=== PATIENT | female | born 1930 | race Caucasian/White ===

== ENCOUNTER → 2016-12-22 | Outpatient (CLI) | payer MEDICARE, MEDICAID ==
[~2016-12-22] MED LIST: AC325T PO; AC500T PO; ACET325T38 PO; ACID1TAB PO; ALBU17AE3; AMLO10TA2 PO; AMLO10TA4; AMLO10TA4 PO; ATR20T PO; CALC-2 PO; CALC1POW; CARI350T PO; CEFD300C3 PO; CHOL10003; CHOL10003 PO; COLE1TAB PO; CRS350T PO; CYAN10007 PO; DCS100C PO; DICL100G18 TOP; ENXP40I.4 SQ; ESOM20CA PO; FAMO-119 PO; FLUT16SP22 NS; GABA-486 PO; GBPN100C PO; GUAI600T43 PO; HCA25SU RC; HYDR-1231 PO; HYDR-3583 PO; HYDR-3812 PO; HYDR-707; HYDR-757 PO; HYPR15DR5 OU; IBUP200T48 PO; LACT1CAP45; LACT1CAP62 PO; LACT1TAB12 PO; LACTOBACILLUS PO; LEVO25TA5 PO; LEVO500T2 PO; LOPE2CAP; LOPE2CAP PO; LORA0.5T PO; LORA10CA PO; LRT10T PO; LVT.025T PO; MAG-5 PO; MELA1TAB16 PO; METH4TAB; METO-387 PO; METO50TA7; METO50TA7 PO; METR500T PO; MINE3.5O30 OS; MIRT15TA6 PO; MTP25TSR PO; MYLANTA; NALO25TA PO; NATURAL TEARS; NF-CIT200 PO; NF-ESOM40C PO; OMEP-10; OMEP20CA12 PO; OMEP20CA6; ONDN4T PO; OXYGEN; PEG250PW PO; POLY119P; POLY15DR14 OU; POLY17PO23 GT; POLY17PO23 PO; POTA20PA3 PO; POTA20TA15 PO; PRM25T PO; PROBIOTIC ADVANTAGE; PROM12.59 PO; PROM25SU10 RC; PROM25TA14 PO; PROP15DR OU; PROP1TAB77; RIVA15TA PO; ROPI0.5T2 PO; ROPI1TAB2 PO; ROPI1TAB40 PO; SENN-120 PO; SENN1TAB76 PO; SIME125C PO; SIMV40TA2; SIMV40TA2 PO; SUCR1ORA5 PO; SULF1TAB38; TERB15CR8; TRAM50TA2; TRL10C90; TROSP20C PO; VALS80TA; VALS80TA PO; VALS80TA30 PO; WARF7.5T; WARF7.5T PO; WRF5T; WRF5T PO; ZLP10T PO; ZLP5T; [UNRECOGNIZED DRUG - CODE]
== END ==
LOC: PREOP 05:40
PROVIDERS: ATTEND Surgery
DX: Z01.810 Encounter for preprocedural cardiovascular examination (principal); K92.1 Melena

== ENCOUNTER 2016-12-24 11:20 | Day surgery (SDC) | payer MEDICARE, MEDICAID ==
[~2016-12-24] VITALS: Ht 167.6 cm; Wt 68.1 kg
[~2016-12-24 11:20] MED LIST changes: -ESOM20CA PO; -LEVO500T2 PO; -METR500T PO
[2016-12-24 11:56] VITALS: BP 150/75
[2016-12-24] MEDS ORDERED: NS IV 500 ML 500 ML ONE (11:57)
[2016-12-24] MEDS ORDERED: NS IV 500 ML 500 ML IV PRN (12:00)
[2016-12-24] MEDS ORDERED: LIDOCAINE JELLY 2% (XYLOCAINE) 5 ML TUBE MM PRN (12:00)
[2016-12-24] MEDS ORDERED: ESOM20CA PO (12:08)
[2016-12-24] MEDS ORDERED: VALS80TA PO (12:08)
[2016-12-24] MEDS ORDERED: MIDAZOLAM 2 MG/2 ML (VERSED) VIAL ONE ×2 (12:33→12:59)
[2016-12-24] MEDS ORDERED: LIDOCAINE JELLY 2% (XYLOCAINE) 5 ML TUBE ONE (12:34)
[2016-12-24] MEDS ORDERED: fentaNYL INJECTION 100 MCG/2 ML AMP ONE (12:34)
[2016-12-24] MEDS: fentaNYL INJECTION 100 MCG/2 ML AMP IVP PRN ×4 (12:35→12:56)
[2016-12-24] MEDS: MIDAZOLAM 2 MG/2 ML (VERSED) VIAL IVP PRN ×4 (12:40→13:05)
--- NOTE | 2016-12-24 12:48 | Conscious Sedation/ASA ---
Conscious Sedation Pre-Proced Time Reviewed: 12:30 ASA Class: 3 Airway Mallampati Classification: ([place] appropriate class) I. II. III, IV Lungs Heart ASA score ASA 1: a normal healthy patient ASA 2: a patient with a mild systemic disease (mid diabetes, controlled hypertension, obesity ASA 3: a patient with a severe systemic disease that limits activity (angina , COPD, prior Myocardial infarction) ASA 4: a patient with an incapacitating disease that is a constant threat to life (CHF, renal failure) ASA 5: a moribund patient not expected to survive 24 hrs. (ruptured aneurysm) ASA 6: a declared brain patient whose organs are being harvested. For emergent operations, add the letter E after the classification Grade 2 Sedation Plan: Analgesia, Amnesia, Plan communicated to team members, Discussed options with patient/fam, Discussed risks with patient/fam Note The patient is an appropriate candidate to undergo the planned procedure, sedation, and anesthesia. The patient immediately re-assessed prior to indication. SAVAGE WOODS MD Dec 24, 2016 12:48 pm
--- NOTE | 2016-12-24 12:51 | Progress Note-Pre Operative ---
Pre-Operative Progress Note H&P Reviewed The H&P was reviewed, patient examined and no changes noted. Date Seen by Provider: Dec 24, 2016 Time Seen by Provider: 12:30 Date H&P Reviewed: Dec 24, 2016 Time H&P Reviewed: 12:30 Pre-Operative Diagnosis: change bowel habit. SAVAGE WOODS MD Dec 24, 2016 12:51 pm
[2016-12-24] MEDS ORDERED: ACETAMINOPHEN 325 MG TABLET/CAPLET (TYLENOL) PO PRN (13:00)
[2016-12-24] MEDS ORDERED: morphine INJ 10 MG/ML 1ML (SYR OR VIAL) IV PRN (13:00)
[2016-12-24] MEDS ORDERED: HYDROcodone/APAP 5 MG/325 MG (LORTAB) TAB PO PRN (13:00)
[2016-12-24] MEDS ORDERED: ONDANSETRON 4 MG/2 ML (SDV) Z0FRAN IV PRN (13:00)
[2016-12-24 13:45] VITALS: BP 128/64
--- NOTE | 2016-12-24 13:46 | Progress Note-Post Operative ---
Post-Operative Progess Note Surgeon (s)/Medical Geneticist (s) Surgeon SAVAGE WOODS MD Medical Geneticist: none Pre-Operative Diagnosis change bowel habit. Post-Operative Diagnosis chronic stage 1 ext and int hemorrhoids, moderate sigmoid diverticulosis, mild cecal and ascending colitis. Procedure & Operative Findings Date of Procedure 12/24/16 Procedure Performed/Findings Colonoscopy with bx. Anesthesia Type CS Estimated Blood Loss Estimated blood loss (mL): minimal Specimens/Packing Specimens Removed cecum SAVAGE WOODS MD Dec 24, 2016 1:46 pm
[2016-12-24] MEDS ORDERED: METR500T PO (13:48)
[2016-12-24] MEDS ORDERED: LEVO500T2 PO (13:48)
--- NOTE | 2016-12-24 13:49 | Discharge Inst-Surgical ---
D/C Lap Instructions-KIDO New, Converted, or Re-Newed RX: RX on Chart Follow Up PRN or will call Activity as tolerated High Fiber Diet 25g or more per day Avoid Alcohol, Caffeine, Spicy [place] and Acid foods. Drink 64 fluid oz or more of fluids per day. Symptoms to Report: Fever over 101 degree F, Nausea/Vomiting If any problems/questions: Contact your physician or go to Emergency Room SAVAGE WOODS MD Dec 24, 2016 1:49 pm
[2016-12-24 14:30] VITALS: BP 137/64
[2016-12-24 14:48] VITALS: BP 137/64
--- NOTE | 2016-12-26 00:33 | OPERATIVE REPORT ---
PROCEDURE PHYSICIAN: SAVAGE VINES DATE OF PROCEDURE: 12/24/2016 ATTENDING PRIMARY CARE PHYSICIAN: Dr. Steve. PREOPERATIVE DIAGNOSES: 1. Change in bowel habits. 2. Lower crampy abdominal pain. 3. Family history of colon cancer. POSTOPERATIVE DIAGNOSES: 1. Mild chronic stage I external and internal hemorrhoids. 2. Moderate sigmoid diverticulosis. 3. Mild colitis of the cecum and the ascending colon. PROCEDURE: Colonoscopy with biopsy. SURGEON: Dr. Vines. ANESTHESIA: Conscious sedation. ESTIMATED BLOOD LOSS: Minimal. FINDINGS: 1. Chronic stage I external and internal hemorrhoids, not actively edematous nor inflamed and no bleeding. 2. There was a moderate sigmoid diverticulosis with no signs of diverticulitis. 3. There was a mild mucosal inflammatory change of the cecum and the ascending colon. There were no formal ulcerations. There was no bleeding. DISPOSITION: The patient tolerated the procedure well. Ms. Linn Angeles is an 86-year-old female with several signs and symptoms. She has had heme positive stools and has also noted crampy pain in the lower abdominal quadrants. She also does have a family history of colon cancer. The [facility] staff stated that since she has had these changes in bowel habits, she has lost a mild amount weight as well. PROCEDURE: The patient was brought to the endoscopy suite, laid in left lateral decubitus position. After adequate IV pain and sedative medications and conscious sedation anesthesia, a digital rectal examination was performed. Chronic stage I external and internal hemorrhoids were identified, which were not actively edematous nor inflamed and no bleeding. Normal sphincter tone was felt and there were no palpable masses. The endoscope was then intubated into the anus and the rectum gently insufflated. The endoscope was then advanced through the valves of Grace of the rectum with no polyps or any or any neoplasms identified. The endoscope was then advanced through the sigmoid colon where moderate sigmoid diverticulosis was identified. There were no mucosal inflammatory changes to indicate any active diverticulitis. The endoscope was then advanced through the descending, transverse, and ascending colon. At the proximal ascending colon as well as the cecum, a mild colitis was identified. There were no formal ulcerations identified as well as no polyps or any neoplasms. A biopsy was taken at the cecum with forceps with visualization of good hemostasis. The endoscope was then slowly withdrawn while taking a second look and suctioning of residual air with no additional findings. The patient tolerated the procedure well. The colitis may be due to bacterial overgrowth; however, may indicate an ischemic colitis or an undiagnosed low level inflammatory bowel disease. We will await the biopsy results; however, treat her as if she did have bacterial overgrowth from her current medical comorbidities, as well as her previous history with Levaquin and Flagyl for the next 7 days. Job ID: [id number] Dictated Date: 12/24/2016 13:46:09 Coagulant Dipper Date: 12/26/2016 00:25:09 / mekhi CANTU
--- OUTSIDE RECORDS SUMMARY | 2016-12-28 07:00 | XMS REPORT | Continuity of Care Document ---
Author Author [facility] Organization [facility] Address Unknown Phone Unavailable Allergies Active Description Code Type Severity Reaction Onset Reported/Identified Relationship to Patient Clinical Status Yes trazodone [id number] Drug Allergy Unknown N/A 05/09/2009 Medications Problems Date Dx Coded Attending Type Code Diagnosis Diagnosed By 06/09/2009 Ot 733.00 08/24/2009 Ot 174.9 08/24/2009 Ot 272.4 08/24/2009 Ot 401.9 08/24/2009 Ot 438.20 08/24/2009 Ot 530.81 08/24/2009 Ot 562.10 08/24/2009 Ot 716.90 08/24/2009 Ot 722.10 08/24/2009 Ot 733.00 08/24/2009 Ot 790.5 08/24/2009 Ot V45.71 08/24/2009 Ot V58.61 08/24/2009 Ot V58.69 10/06/2009 Ot 787.91 11/27/2009 Ot 530.81 11/27/2009 Ot V10.3 11/27/2009 Ot V12.51 11/27/2009 Ot V12.54 11/27/2009 Ot V45.71 11/27/2009 Ot V45.77 11/27/2009 Ot V58.61 11/27/2009 Ot V58.69 11/27/2009 Ot V67.09 12/17/2010 Ot 787.91 12/17/2010 Ot 789.00 01/31/2011 Ot 789.00 03/03/2011 Ot 272.4 03/03/2011 Ot 401.9 03/03/2011 Ot 438.11 03/03/2011 Ot 530.81 03/03/2011 Ot 715.90 03/03/2011 Ot 891.0 03/03/2011 Ot 920 03/03/2011 Ot 923.00 03/03/2011 Ot E000.8 03/03/2011 Ot E849.7 03/03/2011 Ot E888.1 03/03/2011 Ot V06.1 03/03/2011 Ot V58.61 03/03/2011 Ot V58.69 06/04/2011 Ot 272.4 06/04/2011 Ot 285.1 06/04/2011 Ot 401.9 06/04/2011 Ot 438.11 06/04/2011 Ot 438.12 06/04/2011 Ot 530.81 06/04/2011 Ot 715.90 06/04/2011 Ot 733.00 06/04/2011 Ot 820.21 06/04/2011 Ot 820.22 06/04/2011 Ot 923.09 06/04/2011 Ot E000.8 06/04/2011 Ot E849.7 06/04/2011 Ot E884.2 06/04/2011 Ot V58.61 06/03/2012 Ot 787.91 06/03/2012 Ot 789.00 06/05/2012 Ot 354.0 06/05/2012 Ot 401.9 01/16/2014 CRIS ALICEA, ÓSCAR A Ot 438.11 01/16/2014 CRIS ALICEA, ÓSCAR A Ot 808.2 01/16/2014 CRIS ALICEA, ÓSCAR A Ot E849.7 01/16/2014 CRIS ALICEA, ÓSCAR A Ot E888.9 06/10/2014 WARD ALICEA, [facility] Ot 356.9 06/10/2014 WARD ALICEA, [facility] Ot 790.6 06/10/2014 WARD ALICEA, [facility] Ot V10.3 06/10/2014 WARD ALICEA, [facility] Ot V12.55 06/10/2014 WARD ALICEA, [facility] Ot V45.71 06/10/2014 WARD ALICEA, [facility] Ot V45.77 06/10/2014 WARD ALICEA, [facility] Ot V58.61 06/10/2014 WARD ALICEA, [facility] Ot V58.69 06/10/2014 WARD ALICEA, [facility] Ot V67.09 08/08/2014 Ot 611.72 08/08/2014 Ot 733.90 08/08/2014 Ot V76.12 08/08/2014 Ot 959.7 08/08/2014 Ot E849.0 08/08/2014 Ot E888.9 08/08/2014 Ot 174.9 08/08/2014 Ot 174.9 08/08/2014 Ot 709.9 08/08/2014 Ot 785.6 08/08/2014 Ot 791.9 08/08/2014 Ot V58.61 08/08/2014 Ot V72.81 08/08/2014 Ot V72.83 08/08/2014 Ot V74.8 08/08/2014 Ot V74.8 08/08/2014 Ot V74.8 08/08/2014 Ot 599.0 08/08/2014 Ot 789.00 08/08/2014 Ot V81.5 08/08/2014 Ot 787.91 08/08/2014 Ot 174.9 08/08/2014 Ot V10.3 08/08/2014 Ot V12.51 08/08/2014 Ot V12.54 08/08/2014 Ot V45.71 08/08/2014 Ot V45.77 08/08/2014 Ot V58.61 08/08/2014 Ot V58.69 08/08/2014 Ot V67.09 08/08/2014 Ot 719.45 08/08/2014 Ot 733.00 08/08/2014 Ot 729.5 08/08/2014 Ot 729.81 08/08/2014 Ot V10.3 08/08/2014 Ot V12.51 08/08/2014 Ot V12.54 08/08/2014 Ot V45.71 08/08/2014 Ot V45.77 08/08/2014 Ot V58.61 08/08/2014 Ot V58.69 08/08/2014 Ot V67.09 08/08/2014 Ot 008.45 08/08/2014 Ot 440.0 08/08/2014 Ot 562.10 08/08/2014 Ot 576.8 08/08/2014 Ot 593.9 08/08/2014 Ot 787.91 08/08/2014 Ot 789.00 08/08/2014 Ot 789.00 08/08/2014 Ot 787.91 08/08/2014 Ot 787.91 08/08/2014 Ot 438.10 08/08/2014 Ot 593.9 08/08/2014 Ot 724.02 08/08/2014 Ot 790.5 08/08/2014 Ot V10.3 08/08/2014 Ot V12.51 08/08/2014 Ot V45.71 08/08/2014 Ot V45.77 08/08/2014 Ot V58.61 08/08/2014 Ot V58.69 08/08/2014 Ot V67.09 08/08/2014 Ot 733.00 08/08/2014 Ot 785.9 08/08/2014 Ot 438.10 08/08/2014 Ot 593.9 08/08/2014 Ot 724.02 08/08/2014 Ot V10.3 08/08/2014 Ot V12.51 08/08/2014 Ot V45.71 08/08/2014 Ot V45.77 08/08/2014 Ot V58.61 08/08/2014 Ot V58.69 08/08/2014 Ot V67.09 08/08/2014 Ot 438.10 08/08/2014 Ot 593.9 08/08/2014 Ot 724.02 08/08/2014 Ot V10.3 08/08/2014 Ot V12.51 08/08/2014 Ot V45.71 08/08/2014 Ot V45.77 08/08/2014 Ot V58.61 08/08/2014 Ot V58.69 08/08/2014 Ot V67.09 08/08/2014 Ot 562.10 08/08/2014 Ot 789.00 08/08/2014 Ot V10.3 08/08/2014 Ot 438.10 08/08/2014 Ot 593.9 08/08/2014 Ot 724.02 08/08/2014 Ot V10.3 08/08/2014 Ot V12.51 08/08/2014 Ot V45.71 08/08/2014 Ot V45.77 08/08/2014 Ot V58.61 08/08/2014 Ot V58.69 08/08/2014 Ot V67.09 08/08/2014 Ot 354.0 08/08/2014 Ot V72.83 08/08/2014 Ot V74.8 08/08/2014 Ot 787.91 08/08/2014 Ot 789.00 08/08/2014 WARD ALICEA, COLIN Ot 438.10 08/08/2014 WARD ALICEA, COLIN Ot 782.0 08/08/2014 WARD ALICEA, [facility] Ot 790.6 08/08/2014 WARD ALICEA, [facility] Ot V10.3 08/08/2014 WARD ALICEA, [facility] Ot V12.55 08/08/2014 WARD ALICEA, [facility] Ot V45.71 08/08/2014 WARD ALICEA, [facility] Ot V45.77 08/08/2014 WARD ALICEA, [facility] Ot V58.61 08/08/2014 WARD ALICEA, [facility] Ot V58.69 08/08/2014 WARD ALICEA, [facility] Ot V67.09 08/08/2014 WARD ALICEA, [facility] Ot 782.0 08/08/2014 WARD ALICEA, [facility] Ot 790.6 08/08/2014 WARD ALICEA, [facility] Ot V10.3 08/08/2014 WARD ALICEA, [facility] Ot V45.71 08/08/2014 WARD ALICEA, [facility] Ot V45.77 08/08/2014 WARD ALICEA, [facility] Ot V58.69 08/08/2014 WARD ALICEA, [facility] Ot V67.09 08/08/2014 TREMAINE ALICEA, ALICIA A Ot 719.43 08/08/2014 WARD ALICEA, [facility] Ot 782.0 08/08/2014 WARD ALICEA, [facility] Ot 790.6 08/08/2014 WARD ALICEA, [facility] Ot V10.3 08/08/2014 WARD ALICEA, [facility] Ot V12.55 08/08/2014 WARD ALICEA, [facility] Ot V45.71 08/08/2014 WARD ALICEA, [facility] Ot V45.77 08/08/2014 WARD ALICEA, [facility] Ot V58.61 08/08/2014 WARD ALICEA, [facility] Ot V58.69 08/08/2014 WARD ALICEA, [facility] Ot V67.09 08/08/2014 WARD ALICEA, [facility] Ot 356.9 08/08/2014 WARD ALICEA, [facility] Ot 790.6 08/08/2014 WARD ALICEA, [facility] Ot V10.3 08/08/2014 WARD ALICEA, [facility] Ot V12.55 08/08/2014 WARD ALICEA, [facility] Ot V45.71 08/08/2014 WARD ALICEA, [facility] Ot V45.77 08/08/2014 WARD ALICEA, [facility] Ot V58.61 08/08/2014 WARD ALICEA, [facility] Ot V58.69 08/08/2014 WARD ALICEA, [facility] Ot V67.09 08/08/2014 WARD ALICEA, [facility] Ot 438.10 08/08/2014 WARD ALICEA, [facility] Ot 782.0 08/08/2014 WARD ALICEA, [facility] Ot 790.6 08/08/2014 WARD ALICEA, [facility] Ot V10.3 08/08/2014 WARD ALICEA, [facility] Ot V12.55 08/08/2014 WARD ALICEA, [facility] Ot V45.71 08/08/2014 WARD ALICEA, [facility] Ot V45.77 08/08/2014 WARD ALICEA, [facility] Ot V58.61 08/08/2014 WARD ALICEA, [facility] Ot V58.69 08/08/2014 WARD ALICEA, [facility] Ot V67.09 08/08/2014 WARD ALICEA, [facility] Ot 438.10 08/08/2014 WARD ALICEA, [facility] Ot 782.0 08/08/2014 WARD ALICEA, [facility] Ot 790.6 08/08/2014 WARD ALICEA, [facility] Ot V10.3 08/08/2014 WARD ALICEA, [facility] Ot V12.55 08/08/2014 WARD ALICEA, [facility] Ot V45.71 08/08/2014 WARD ALICEA, [facility] Ot V45.77 08/08/2014 WARD ALICEA, [facility] Ot V58.61 08/08/2014 WARD ALICEA, [facility] Ot V58.69 08/08/2014 WARD ALICEA, [facility] Ot V67.09 08/08/2014 WARD ALICEA, [facility] Ot 438.10 08/08/2014 WARD ALICEA, [facility] Ot 782.0 08/08/2014 WARD ALICEA, [facility] Ot 790.6 08/08/2014 WARD ALICEA, [facility] Ot V10.3 08/08/2014 WARD ALICEA, [facility] Ot V12.55 08/08/2014 WARD ALICEA, [facility] Ot V45.71 08/08/2014 WARD ALICEA, [facility] Ot V45.77 08/08/2014 WARD ALICEA, [facility] Ot V58.61 08/08/2014 WARD ALICEA, [facility] Ot V58.69 08/08/2014 WARD ALICEA, [facility] Ot V67.09 08/08/2014 WARD ALICEA, [facility] Ot 438.10 08/08/2014 WARD ALICEA, [facility] Ot 782.0 08/08/2014 WARD ALICEA, [facility] Ot 790.6 08/08/2014 WARD ALICEA, [facility] Ot V10.3 08/08/2014 WARD ALICEA, [facility] Ot V12.55 08/08/2014 WARD ALICEA, [facility] Ot V45.71 08/08/2014 WARD ALICEA, [facility] Ot V45.77 08/08/2014 WARD ALICEA, [facility] Ot V58.61 08/08/2014 WARD ALICEA, [facility] Ot V58.69 08/08/2014 WARD ALICEA, [facility] Ot V67.09 09/17/2014 WARD ALICEA, [facility] Ot 782.0 09/17/2014 WARD ALICEA, [facility] Ot 790.6 09/17/2014 WARD ALICEA, [facility] Ot V10.3 09/17/2014 WARD ALICEA, [facility] Ot V12.55 09/17/2014 WARD ALICEA, ILMA[facility] Ot V45.71 09/17/2014 WARD ALICEA, [facility] Ot V45.77 09/17/2014 WARD ALICEA, [facility] Ot V58.61 09/17/2014 WARD ALICEA, [facility] Ot V58.69 09/17/2014 WARD ALICEA, [facility] Ot V67.09 09/19/2014 Ot 789.00 10/04/2014 Ot 789.00 12/16/2014 Ot V74.8 12/16/2014 Ot V74.8 12/16/2014 Ot 599.0 12/16/2014 Ot 789.00 12/16/2014 Ot V81.5 12/16/2014 Ot 787.91 12/16/2014 Ot 174.9 12/16/2014 Ot V10.3 12/16/2014 Ot V12.51 12/16/2014 Ot V12.54 12/16/2014 Ot V45.71 12/16/2014 Ot V45.77 12/16/2014 Ot V58.61 12/16/2014 Ot V58.69 12/16/2014 Ot V67.09 12/16/2014 Ot 719.45 12/16/2014 Ot 733.00 12/16/2014 Ot 729.5 12/16/2014 Ot 729.81 12/16/2014 Ot V10.3 12/16/2014 Ot V12.51 12/16/2014 Ot V12.54 12/16/2014 Ot V45.71 12/16/2014 Ot V45.77 12/16/2014 Ot V58.61 12/16/2014 Ot V58.69 12/16/2014 Ot V67.09 12/16/2014 Ot 008.45 12/16/2014 Ot 440.0 12/16/2014 Ot 562.10 12/16/2014 Ot 576.8 12/16/2014 Ot 593.9 12/16/2014 Ot 787.91 12/16/2014 Ot 789.00 12/16/2014 Ot 789.00 12/16/2014 Ot 787.91 12/16/2014 Ot 787.91 12/16/2014 Ot 438.10 12/16/2014 Ot 593.9 12/16/2014 Ot 724.02 12/16/2014 Ot 790.5 12/16/2014 Ot V10.3 12/16/2014 Ot V12.51 12/16/2014 Ot V45.71 12/16/2014 Ot V45.77 12/16/2014 Ot V58.61 12/16/2014 Ot V58.69 12/16/2014 Ot V67.09 12/16/2014 Ot 733.00 12/16/2014 Ot 785.9 12/16/2014 Ot 438.10 12/16/2014 Ot 593.9 12/16/2014 Ot 724.02 12/16/2014 Ot V10.3 12/16/2014 Ot V12.51 12/16/2014 Ot V45.71 12/16/2014 Ot V45.77 12/16/2014 Ot V58.61 12/16/2014 Ot V58.69 12/16/2014 Ot V67.09 12/16/2014 Ot 438.10 12/16/2014 Ot 593.9 12/16/2014 Ot 724.02 12/16/2014 Ot V10.3 12/16/2014 Ot V12.51 12/16/2014 Ot V45.71 12/16/2014 Ot V45.77 12/16/2014 Ot V58.61 12/16/2014 Ot V58.69 12/16/2014 Ot V67.09 12/16/2014 Ot 562.10 12/16/2014 Ot 789.00 12/16/2014 Ot V10.3 12/16/2014 Ot 438.10 12/16/2014 Ot 593.9 12/16/2014 Ot 724.02 12/16/2014 Ot V10.3 12/16/2014 Ot V12.51 12/16/2014 Ot V45.71 12/16/2014 Ot V45.77 12/16/2014 Ot V58.61 12/16/2014 Ot V58.69 12/16/2014 Ot V67.09 12/16/2014 Ot 354.0 12/16/2014 Ot V72.83 12/16/2014 Ot V74.8 12/16/2014 Ot 787.91 12/16/2014 Ot 789.00 12/16/2014 WARD ALICEA, JANINELEDY Ot 438.10 12/16/2014 WARD ALICEA, LIMALEDY Ot 782.0 12/16/2014 WARD ALICEA, LIMALEDY Ot 790.6 12/16/2014 WARD ALICEA, LIMALEDY Ot V10.3 12/16/2014 WARD ALICEA, LIMALEDY Ot V12.55 12/16/2014 WARD ALICEA, LIMALEDY Ot V45.71 12/16/2014 WARD ALICEA, LIMALEDY Ot V45.77 12/16/2014 WARD ALICEA, [facility] Ot V58.61 12/16/2014 WARD ALICEA, [facility] Ot V58.69 12/16/2014 WARD ALICEA, [facility] Ot V67.09 12/16/2014 WARD ALICEA, LIMALEDY Ot 782.0 12/16/2014 WARD ALICEA, [facility] Ot 790.6 12/16/2014 WARD ALICEA, [facility] Ot V10.3 12/16/2014 WARD ALICEA, [facility] Ot V45.71 12/16/2014 WARD ALICEA, [facility] Ot V45.77 12/16/2014 WARD ALICEA, [facility] Ot V58.69 12/16/2014 WARD ALICEA, [facility] Ot V67.09 12/16/2014 TREMAINE ALICEA, ALICIA A Ot 719.43 12/16/2014 WARD ALICEA, [facility] Ot 782.0 12/16/2014 WARD ALICEA, [facility] Ot 790.6 12/16/2014 WARD ALICEA, [facility] Ot V10.3 12/16/2014 WARD ALICEA, [facility] Ot V12.55 12/16/2014 WARD ALICEA, [facility] Ot V45.71 12/16/2014 WARD ALICEA, [facility] Ot V45.77 12/16/2014 WARD ALICEA, [facility] Ot V58.61 12/16/2014 WARD ALICEA, [facility] Ot V58.69 12/16/2014 WARD ALICEA, [facility] Ot V67.09 12/16/2014 WARD ALICEA, [facility] Ot 356.9 12/16/2014 WARD ALICEA, [facility] Ot 790.6 12/16/2014 WARD ALICEA, [facility] Ot V10.3 12/16/2014 WARD ALICEA, [facility] Ot V12.55 12/16/2014 WARD ALICEA, [facility] Ot V45.71 12/16/2014 WARD ALICEA, [facility] Ot V45.77 12/16/2014 WARD ALICEA, [facility] Ot V58.61 12/16/2014 WARD ALICEA, [facility] Ot V58.69 12/16/2014 WARD ALICEA, [facility] Ot V67.09 12/16/2014 Ot 789.00 01/08/2015 WARD ALICEA, [facility] Ot 356.9 01/08/2015 WARD ALICEA, [facility] Ot 427.31 01/08/2015 WARD ALICEA, [facility] Ot 438.10 01/08/2015 WARD ALICEA, [facility] Ot 724.02 01/08/2015 WARD ALICEA, [facility] Ot 790.6 01/08/2015 WARD ALICEA, [facility] Ot V10.3 01/08/2015 WARD ALICEA, CL[facility] Ot V12.55 01/08/2015 WARD ALICEA, LIMALEDY Ot V45.71 01/08/2015 WARD ALICEA, LIMALEDY Ot V58.61 01/08/2015 WARD ALICEA, LIMALEDY Ot V58.69 01/08/2015 WARD ALICEA, LIMAL[facility]Y Ot V67.09 01/08/2015 [facility] V88.01 01/08/2015 TREMAINE ALICEA, ALICIA Leoncio Ot 599.0 01/31/2015 WARD ALICEA, LIMALEDY Ot 356.9 01/31/2015 WARD ALICEA, LIMAL[facility]Y Ot 427.31 01/31/2015 WARD ALICEA, LIMAL[facility]Y Ot 438.10 01/31/2015 WARD ALICEA, LIMALEDY Ot 724.02 01/31/2015 WARD ALICEA, CLARENCELEDY Ot 790.6 01/31/2015 WARD ALICEA, LIMALEDY Ot V10.3 01/31/2015 WARD ALICEA, LIMALEDY Ot V12.55 01/31/2015 WARD ALICEA, LIMALEDY Ot V45.71 01/31/2015 WARD ALICEA, LIMALEDY Ot V58.61 01/31/2015 WARD ALICEA, LIMALEDY Ot V58.69 01/31/2015 WARD ALICEA, LIMALEDY Ot V67.09 01/31/2015 WARD ALICEA, LIMALEDY Ot V88.01 09/24/2015 Ot V10.3 09/24/2015 Ot V12.51 09/24/2015 Ot V12.54 09/24/2015 Ot V45.71 09/24/2015 Ot V45.77 09/24/2015 Ot V58.61 09/24/2015 Ot V58.69 09/24/2015 Ot V67.09 09/24/2015 Ot 008.45 09/24/2015 Ot 440.0 09/24/2015 Ot 562.10 09/24/2015 Ot 576.8 09/24/2015 Ot 593.9 09/24/2015 Ot 787.91 09/24/2015 Ot 789.00 09/24/2015 Ot 789.00 09/24/2015 Ot 787.91 09/24/2015 Ot 787.91 09/24/2015 Ot 438.10 09/24/2015 Ot 593.9 09/24/2015 Ot 724.02 09/24/2015 Ot 790.5 09/24/2015 Ot V10.3 09/24/2015 Ot V12.51 09/24/2015 Ot V45.71 09/24/2015 Ot V45.77 09/24/2015 Ot V58.61 09/24/2015 Ot V58.69 09/24/2015 Ot V67.09 09/24/2015 Ot 733.00 09/24/2015 Ot 785.9 09/24/2015 Ot 438.10 09/24/2015 Ot 593.9 09/24/2015 Ot 724.02 09/24/2015 Ot V10.3 09/24/2015 Ot V12.51 09/24/2015 Ot V45.71 09/24/2015 Ot V45.77 09/24/2015 Ot V58.61 09/24/2015 Ot V58.69 09/24/2015 Ot V67.09 09/24/2015 Ot 438.10 09/24/2015 Ot 593.9 09/24/2015 Ot 724.02 09/24/2015 Ot V10.3 09/24/2015 Ot V12.51 09/24/2015 Ot V45.71 09/24/2015 Ot V45.77 09/24/2015 Ot V58.61 09/24/2015 Ot V58.69 09/24/2015 Ot V67.09 09/24/2015 Ot 562.10 09/24/2015 Ot 789.00 09/24/2015 Ot V10.3 09/24/2015 Ot 438.10 09/24/2015 Ot 593.9 09/24/2015 Ot 724.02 09/24/2015 Ot V10.3 09/24/2015 Ot V12.51 09/24/2015 Ot V45.71 09/24/2015 Ot V45.77 09/24/2015 Ot V58.61 09/24/2015 Ot V58.69 09/24/2015 Ot V67.09 09/24/2015 Ot 354.0 09/24/2015 Ot V72.83 09/24/2015 Ot V74.8 09/24/2015 Ot 787.91 09/24/2015 Ot 789.00 09/24/2015 WARD ALICEA, [facility] Ot 438.10 09/24/2015 WARD ALICEA, [facility] Ot 782.0 09/24/2015 WARD ALICEA, [facility] Ot 790.6 09/24/2015 WARD ALICEA, [facility] Ot V10.3 09/24/2015 WARD ALICEA, [facility] Ot V12.55 09/24/2015 WARD ALICEA, [facility] Ot V45.71 09/24/2015 WARD ALICEA, [facility] Ot V45.77 09/24/2015 WARD ALICEA, [facility] Ot V58.61 09/24/2015 WARD ALICEA, [facility] Ot V58.69 09/24/2015 WARD ALICEA, [facility] Ot V67.09 09/24/2015 WARD ALICEA, [facility] Ot 782.0 09/24/2015 WARD ALICEA, [facility] Ot 790.6 09/24/2015 WARD ALICEA, [facility] Ot V10.3 09/24/2015 WARD ALICEA, [facility] Ot V45.71 09/24/2015 WARD ALICEA, [facility] Ot V45.77 09/24/2015 WARD ALICEA, [facility] Ot V58.69 09/24/2015 WARD ALICEA, [facility] Ot V67.09 09/24/2015 TREMAINE ALICEA, ALICIA A Ot 719.43 09/24/2015 WARD ALICEA, [facility] Ot 782.0 09/24/2015 WARD ALICEA, CL[facility] Ot 790.6 09/24/2015 WARD ALICEA, [facility] Ot V10.3 09/24/2015 WARD ALICEA, [facility] Ot V12.55 09/24/2015 WARD ALICEA, [facility] Ot V45.71 09/24/2015 WARD ALICEA, [facility] Ot V45.77 09/24/2015 WARD ALICEA, CL[facility] Ot V58.61 09/24/2015 WARD ALICEA, [facility] Ot V58.69 09/24/2015 WARD ALICEA, CL[facility] Ot V67.09 09/24/2015 WARD ALICEA, CL[facility] Ot 356.9 09/24/2015 WARD ALICEA, [facility] Ot 790.6 09/24/2015 WARD ALICEA, [facility] Ot V10.3 09/24/2015 WARD ALICEA, CL[facility] Ot V12.55 09/24/2015 WARD ALICEA, CL[facility] Ot V45.71 09/24/2015 WARD ALICEA, CLARENCE[facility]LEDY Ot V45.77 09/24/2015 WARD ALICEA, CLARENCE[facility]Y Ot V58.61 09/24/2015 WARD ALICEA, [facility] Ot V58.69 09/24/2015 WARD ALICEA, CLARENCE[facility]LEDY Ot V67.09 09/24/2015 Ot 789.00 09/24/2015 WARD ALICEA, CL[facility] Ot 356.9 09/24/2015 WARD ALICEA, CLARENCE[facility]LEDY Ot 427.31 09/24/2015 WARD ALICEA, CLARENCE[facility]Y Ot 438.10 09/24/2015 WARD ALICEA, CLARENCE[facility]Y Ot 724.02 09/24/2015 WARD ALICEA, CL[facility] Ot 790.6 09/24/2015 WARD ALICEA, CL[facility] Ot V10.3 09/24/2015 WARD ALICEA, [facility] Ot V12.55 09/24/2015 WARD ALICEA, [facility] Ot V45.71 09/24/2015 WARD ALICEA, [facility] Ot V58.61 09/24/2015 WARD ALICEA, CL[facility] Ot V58.69 09/24/2015 WARD ALICEA, CL[facility]Y Ot V67.09 09/24/2015 WARD ALICEA, [facility] Ot V88.01 09/24/2015 TREMAINE ALICEA, ALICIA Fang Ot 599.0 09/25/2015 ALICIA PENALOZA MD Ot E03.9 HYPOTHYROIDISM, UNSPECIFIED 09/25/2015 ALICIA PENALOZA MD Ot G45.9 TRANSIENT CEREBRAL ISCHEMIC ATTACK, UNSP 09/25/2015 TREMAINE ALICEA, ALICIA Fang Ot I10 ESSENTIAL (PRIMARY) HYPERTENSION 09/25/2015 ALICIA PENALOZA MD Ot I50.9 HEART FAILURE, UNSPECIFIED 09/25/2015 ALICIA PENALOZA MD Ot 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 09/25/2015 ALICIA PENALOZA MD Ot J18.9 PNEUMONIA, UNSPECIFIED ORGANISM 09/25/2015 ALICIA PENALOZA MD Ot K21.9 GASTRO-ESOPHAGEAL REFLUX DISEASE WITHOUT 09/25/2015 TREMAINE ALICEA, ALICIA Fang Ot R07.9 CHEST PAIN, UNSPECIFIED 09/25/2015 ALICIA PENALOZA MD Ot R53.1 WEAKNESS 09/25/2015 ALICIA PENALOZA MD Ot Z87.891 PERSONAL HISTORY OF NICOTINE DEPENDENCE 12/21/2015 BHARAT ALICEA, GET Rogel Ot M25.552 PAIN IN LEFT HIP 12/25/2015 GET NICHOLSON MD Ot M25.552 PAIN IN LEFT HIP 12/25/2015 BHARAT ALICEA, GET Rogel Ot M25.552 PAIN IN LEFT HIP 04/25/2016 RAÚL WARD Ot I10 ESSENTIAL (PRIMARY) HYPERTENSION 04/25/2016 RAÚL WARD Ot 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 04/25/2016 RAÚL WARD Ot K21.9 GASTRO-ESOPHAGEAL REFLUX DISEASE WITHOUT 04/25/2016 RAÚL WARD Ot R10.13 EPIGASTRIC PAIN 04/25/2016 RAÚL WARD Ot R91.8 OTHER NONSPECIFIC ABNORMAL FINDING OF MARVIN 04/25/2016 RAÚL WARD Ot Z79.899 OTHER HOME SERVICE ADVISOR (CURRENT) DRUG THERAPY 04/27/2016 RAÚL WARD Ot I10 ESSENTIAL (PRIMARY) HYPERTENSION 04/27/2016 RAÚL WARD Ot 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 04/27/2016 RAÚL WARD Ot K21.9 GASTRO-ESOPHAGEAL REFLUX DISEASE WITHOUT 04/27/2016 RAÚL WARD Ot R10.13 EPIGASTRIC PAIN 04/27/2016 RAÚL WARD Ot R91.8 OTHER NONSPECIFIC ABNORMAL FINDING OF MARVIN 04/27/2016 RAÚL WARD Ot Z79.899 OTHER HOME SERVICE ADVISOR (CURRENT) DRUG THERAPY 04/27/2016 RAÚL WARD Ot I10 ESSENTIAL (PRIMARY) HYPERTENSION 04/27/2016 RAÚL WARD Ot 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 04/27/2016 RAÚL WARD Ot K21.9 GASTRO-ESOPHAGEAL REFLUX DISEASE WITHOUT 04/27/2016 RAÚL WARD Ot R10.13 EPIGASTRIC PAIN 04/27/2016 RAÚL WARD Ot R91.8 OTHER NONSPECIFIC ABNORMAL FINDING OF MARVIN 04/27/2016 RAÚL WARD Ot Z79.899 OTHER HOME SERVICE ADVISOR (CURRENT) DRUG THERAPY 12/24/2016 SAVAGE WOODS MD Ot K92.1 MELENA 12/24/2016 SAVAGE WOODS MD Ot Z01.810 ENCOUNTER FOR PREPROCEDURAL CARDIOVASCUL 12/24/2016 SAVAGE WOODS MD Ot K92.1 MELENA 12/24/2016 SAVAGE WOODS MD Ot Z01.810 ENCOUNTER FOR PREPROCEDURAL CARDIOVASCUL 12/24/2016 SAVAGE WOODS MD Ot K92.1 MELENA 12/24/2016 SAVAGE WOODS MD Ot Z01.810 ENCOUNTER FOR PREPROCEDURAL CARDIOVASCUL 12/24/2016 SAVAGE WOODS MD Ot K92.1 MELENA 12/24/2016 SAVAGE WOODS MD Ot Z01.810 ENCOUNTER FOR PREPROCEDURAL CARDIOVASCUL 12/24/2016 SAVAGE WOODS MD Ot K92.1 MELENA 12/24/2016 SAVAGE WOODS MD Ot Z01.810 ENCOUNTER FOR PREPROCEDURAL CARDIOVASCUL Procedures Results Test Result Range Complete blood count (CBC) with automated white blood cell (WBC) differential - 04/25/16 11:47 Blood leukocytes automated count (number/volume) 8.1 10*3/ uL 4.3-11.0 Blood erythrocytes automated count (number/volume) 5.59 10*6 /uL 4.35-5.85 Venous blood hemoglobin measurement (mass/volume) 16.4 g/dL 11.5-16.0 Blood hematocrit (volume fraction) 50 % 35-52 Automated erythrocyte mean corpuscular volume 89 [foz_us] 80-99 Automated erythrocyte mean corpuscular hemoglobin (mass per erythrocyte) 29 pg 25-34 Automated erythrocyte mean corpuscular hemoglobin concentration measurement ( mass/volume) 33 g/dL 32-36 Automated erythrocyte distribution width ratio 13.3 % 10.0-14.5 Automated blood platelet count (count/volume) 270 10*3/uL 130-400 Automated blood platelet mean volume measurement 10.9 [foz_ us] 7.4-10.4 Automated blood neutrophils/100 leukocytes 59 % 42-75 Automated blood lymphocytes/100 leukocytes 31 % 12-44 Blood monocytes/100 leukocytes 8 % 0-12 Automated blood eosinophils/100 leukocytes 2 % 0-10 Automated blood basophils/100 leukocytes 1 % 0-10 Blood neutrophils automated count (number/volume) 4.8 10*3 1.8-7.8 Blood lymphocytes automated count (number/volume) 2.5 10*3 1.0-4.0 Blood monocytes automated count (number/volume) 0.7 10*3 0.0-1.0 Automated eosinophil count 0.1 10*3/uL 0.0-0.3 Automated blood basophil count (count/volume) 0.0 10*3/uL 0.0-0.1 PT panel in platelet poor plasma by coagulation assay - 04/25/16 11:47 Prothrombin time (PT) in platelet poor plasma by coagulation assay 19.6 s 12.2-14.7 INR in platelet poor plasma or blood by coagulation assay 1.7 0.8-1.4 Activated partial thromboplastin time (aPTT) in platelet poor plasma bycoagulation assay - 04/25/16 11:47 Activated partial thromboplastin time (aPTT) in platelet poor plasma bycoagulation assay 42 s 24-35 Comprehensive metabolic panel - 04/25/16 11:47 Serum or plasma sodium measurement (moles/volume) 140 mmol/ L 135-145 Serum or plasma potassium measurement (moles/volume) 4.6 mmol/L 3.6-5.0 Serum or plasma chloride measurement (moles/volume) 108 mmol /L 98-107 Carbon dioxide 23 mmol/L 21-32 Serum or plasma anion gap determination (moles/volume) 9 mmol/L 5-14 Serum or plasma urea nitrogen measurement (mass/volume) 18 mg/dL 7-18 Serum or plasma creatinine measurement (mass/volume) 1.16 mg /dL 0.60-1.30 Serum or plasma urea nitrogen/creatinine mass ratio 16 NRG Serum or plasma creatinine measurement with calculation of estimated glomerular filtration rate 44 NRG Serum or plasma glucose measurement (mass/volume) 95 mg/dL 70-105 Serum or plasma calcium measurement (mass/volume) 10.4 mg/ dL 8.5-10.1 Serum or plasma total bilirubin measurement (mass/volume) 0.4 mg/dL 0.1-1.0 Serum or plasma alkaline phosphatase measurement (enzymatic activity/volume) 109 U/L 40-136 Serum or plasma aspartate aminotransferase measurement (enzymatic activity/ volume) 26 U/L 5-34 Serum or plasma alanine aminotransferase measurement (enzymatic activity/volume ) 21 U/L 0-55 Serum or plasma protein measurement (mass/volume) 7.3 g/dL 6.4-8.2 Serum or plasma albumin measurement (mass/volume) 4.3 g/dL 3.2-4.5 Magnesium - 04/25/16 11:47 Magnesium 2.4 mg/dL 1.8-2.4 Serum or plasma troponin i.cardiac measurement (mass/volume) - 04/25/16 11:47 Serum or plasma troponin i.cardiac measurement (mass/volume) < ng/mL <0.30 Myoglobin, serum - 04/25/16 11:47 Myoglobin, serum 61.3 ng/mL 10.0-92.0 Serum or plasma thyrotropin measurement by detection limit <=0.05 miu/l (units/ volume) - 04/25/16 11:47 Serum or plasma thyrotropin measurement by detection limit <=0.05 miu/l (units/ volume) 1.64 u[iU]/mL 0.35-4.94 Complete urinalysis with reflex to culture - 04/25/16 12:50 Urine color determination YELLOW NRG Urine clarity determination CLEAR NRG Urine pH measurement by test strip 8 5- 9 Specific gravity of urine by test strip 1.010 1.016-1.022 Urine protein assay by test strip, semi-quantitative NEGATIVE NEGATIVE Urine glucose detection by automated test strip NEGATIVE NEGATIVE Erythrocytes detection in urine sediment by light microscopy NEGATIVE NEGATIVE Urine ketones detection by automated test strip NEGATIVE NEGATIVE Urine nitrite detection by test strip NEGATIVE NEGATIVE Urine total bilirubin detection by test strip NEGATIVE NEGATIVE Urine urobilinogen measurement by automated test strip (mass/volume) NORMAL NORMAL Urine leukocyte esterase detection by dipstick NEGATIVE NEGATIVE Automated urine sediment erythrocyte count by microscopy (number/high power field) NONE NRG Automated urine sediment leukocyte count by microscopy (number/high power field ) NONE NRG Bacteria detection in urine sediment by light microscopy NEGATIVE NRG Squamous epithelial cells detection in urine sediment by light microscopy NONE NRG Crystals detection in urine sediment by light microscopy NONE NRG Casts detection in urine sediment by light microscopy NONE NRG Mucus detection in urine sediment by light microscopy NEGATIVE NRG Complete urinalysis with reflex to culture NO NRG Encounters ACCT No. Visit Date/Time Discharge Status Pt. Type Provider Facility Loc./Unit Complaint [id number] 12/24/2016 11:20:00 2016 14:45:00 DIS Outpatient SAVAGE WOODS MD [facility] ENDO BLOOD IN STOOL [id number] 04/25/2016 11:39:00 2015 14:19:00 DIS Emergency RAÚL WARD [facility] ER CHEST PAIN [id number] 12/21/2015 11:31:00 2015 13:34:00 DIS Emergency GET NICHOLSON MD [facility] ER L HIP PAIN [id number] 09/24/2015 12:36:00 2015 12:15:00 DIS Inpatient ALICIA PENALOZA MD [facility] 4TH [id number] 12/17/2014 10:14:00 2014 23:59:59 CLS Outpatient COLIN HOPPER MD [facility] ONC [id number] 12/13/2014 17:21:00 2014 23:59:59 CLS Outpatient ALICIA PENALOZA MD [facility] MSL [id number] 05/14/2014 09:29:00 2013 23:59:59 CLS Outpatient COLIN HOPPER MD [facility] ONC [id number] 01/16/2014 20:59:00 2013 22:17:00 DIS Emergency ÓSCAR LYNCH MD [facility] ER [id number] 10/23/2013 12:32:00 2013 23:59:59 CLS Outpatient COLIN HOPPER MD [facility] ONC [id number] 06/06/2013 10:07:00 2012 23:59:59 CLS Outpatient ALICIA PENALOZA MD [facility] RAD [id number] 04/24/2013 12:38:00 2012 23:59:59 CLS Outpatient COLIN HOPPER MD [facility] ONC [id number] 11/07/2012 11:28:00 2012 23:59:59 CLS Outpatient COLIN HOPPER MD [facility] ONC [id number] 12/22/2016 05:40:00 ACT Outpatient SAVAGE WOODS MD [facility] PREOP BLOOD IN STOOL [id number] 12/16/2015 10:02:00 PEN Preadmit JANINE HOPPER MD [facility] ONC [id number] 09/02/2014 15:25:00 Document Registration [id number] 08/08/2014 12:42:00 Document Registration [id number] 08/08/2014 12:42:00 Document Registration [id number] 08/08/2014 12:42:00 Document Registration [id number] 08/08/2014 12:42:00 Document Registration [id number] 08/08/2014 12:42:00 Document Registration [id number] 08/08/2014 12:42:00 Document Registration [id number] 08/08/2014 12:42:00 Document Registration [id number] 08/08/2014 12:42:00 Document Registration [id number] 06/05/2012 06:08:00 Document Registration [id number] 06/04/2012 00:00:00 Document Registration [id number] 06/01/2012 09:30:00 Document Registration [id number] 05/15/2012 10:42:00 Document Registration [id number] 04/06/2012 09:26:00 Document Registration [id number] 04/03/2012 10:09:00 Document Registration [id number] 03/05/2012 08:30:00 Document Registration [id number] 09/27/2011 09:55:00 Document Registration [id number] 07/21/2011 09:29:00 Document Registration [id number] 05/30/2011 09:05:00 Document Registration [id number] 04/28/2011 12:59:00 Document Registration [id number] 03/22/2011 09:52:00 Document Registration [id number] 03/13/2011 10:06:00 Document Registration [id number] 03/10/2011 19:33:00 Document Registration [id number] 02/26/2011 16:15:00 Document Registration [id number] 02/01/2011 00:00:00 Document Registration [id number] 12/18/2010 00:00:00 Document Registration [id number] 11/05/2010 08:03:00 Document Registration [id number] 11/03/2010 10:12:00 Document Registration [id number] 09/24/2010 18:39:00 Document Registration [id number] 09/21/2010 10:22:00 Document Registration [id number] 09/18/2010 13:50:00 Document Registration [id number] 03/26/2010 14:38:00 Document Registration [id number] 03/17/2010 12:59:00 Document Registration [id number] 01/21/2010 15:33:00 Document Registration [id number] 01/21/2010 10:39:00 Document Registration [id number] 11/26/2009 10:32:00 Document Registration [id number] 10/30/2009 11:14:00 Document Registration [id number] 10/07/2009 00:00:00 Document Registration [id number] 09/26/2009 10:42:00 Document Registration [id number] 09/11/2009 21:55:00 Document Registration [id number] 07/21/2009 10:16:00 Document Registration [id number] 07/17/2009 16:13:00 Document Registration [id number] 07/09/2009 09:59:00 Document Registration [id number] 05/26/2009 10:39:00 Document Registration [id number] 05/06/2009 11:52:00 Document Registration [id number] 04/09/2009 13:48:00 Document Registration [id number] 03/20/2009 10:16:00 Document Registration [id number] 03/19/2009 15:07:00 Document Registration [id number] 03/11/2009 13:10:00 Document Registration
== END 2016-12-24 14:45 | disposition home or self-care (01) ==
LOC: ENDO 11:20
PROVIDERS: ATTEND Surgery
DX: K57.30 Diverticulosis of large intestine without perforation or abscess without bleeding; F32.9 Major depressive disorder, single episode, unspecified; Z86.711 Personal history of pulmonary embolism; K64.0 First degree hemorrhoids; I10 Essential (primary) hypertension; R19.4 Change in bowel habit; G20 Parkinson's disease; K52.9 Noninfective gastroenteritis and colitis, unspecified; Z79.01 Long term (current) use of anticoagulants; Z79.899 Other long term (current) drug therapy
CPT/HCPCS: 88305

== ENCOUNTER 2017-05-27 07:06 | Emergency (ER) | payer MEDICARE, MEDICAID ==
[~2017-05-27] VITALS: Ht 167.6 cm; Wt 68.1 kg
[~2017-05-27 07:06] MED LIST changes: +ESOM20CA PO; +LEVO500T2 PO; +METR500T PO
[2017-05-27] MEDS ORDERED: LACTATED RINGERS 1,000 ML IV ONE ×2 (07:22→07:54)
--- NOTE | 2017-05-27 07:32 | ED Abdominal Pain ---
General Stated Complaint: SEVERE ABD PAIN Source of Information: Patient, Caregiver (executive director of nursing), [facility] Records Exam Limitations: Physical Impairments History of Present Illness Time Seen By Provider: 07:19 Initial Comments Being cared for long-term. The patient has difficulty taking medication secondary to history of stroke. She is not able to give much medical history however staff reports that she was doing okay prior to today and now she will not walk which is not her normal. She is complaining of abdominal pain when palpating her right lower quadrant per nursing notes. They also noticed a small red lump on her vagina but did not give which side. There is no discharge. There is been no nausea and vomiting. The patient has a history of being in the [place], [place] last week and was evaluated and found to have degenerative changes her spine and was scheduled to have an MRI today for possible compression fracture. She has not had any falls. She is complaining of being thirsty pointing to her mouth and then pointing at the caregivers bottled drink. Patient's last bowel movement was yesterday morning. Nursing notes indicate they gave her hydrocodone this morning for abdominal pain. Allergies and Home Medications Allergies Coded Allergies: trazodone (Verified Allergy, Unknown, 05/09/09) Home Medications Acetaminophen 500 Mg Tablet, 500 MG PO Q4H PRN for PAIN, (Reported) Acetaminophen 325 Mg Tablet, 650 MG PO Q4H PRN for PAIN, (Reported) TAKES 2 (325MG) TABLETS Cholecalciferol 1,000 Unit Tablet, 2,000 UNITS PO DAILY, (Reported) TAKES 2 (1000 UNIT) TABLETS Cyanocobalamin 1,000 Mcg Tablet.sa, 1,000 MCG PO DAILY, (Reported) Diclofenac Sodium 100 Gm Gel..gram., 4 GM TOP QID, (Reported) APPLY TO RIGHT LATERAL HIP Docusate Sodium 100 Mg Capsule, 100 MG PO BID, (Reported) Esomeprazole Magnesium 20 Mg Capsule.dr, 20 MG PO DAILY, (Reported) Famotidine 20 Mg Tablet, 20 MG PO DAILY, (Reported) Famotidine 20 Mg Tablet, 20 MG PO BID, #60 Ref 0 Prescribed by: RAÚL MINER on 04/25/16 1305 Fluticasone Propionate 16 Gm Smith.susp, 1 SPRAY NS UD, (Reported) USE TWICE DAILY FOR 7 DAYS START DATE 09-18-15 END DATE 4-7-16 AM DOSE THEN RESUME ONCE DAILY DOSAGE Gabapentin 100 Mg Capsule, 100 MG PO TID, (Reported) Hydrocodone Bit/Acetaminophen 1 Each Tablet, 1 TAB PO Q6H PRN for PAIN, ( Reported) Hydrocodone/Acetaminophen 1 Each Tablet, 1 TAB PO BID, (Reported) Hydrocortisone Acetate 1 Ea Supp, 25 MG RC Q12H PRN for MODERATE PAIN, (Reported ) Hypromellose 15 Ml Drops, 1 DROP OU Q4H PRN for DRY EYES, (Reported) Ibuprofen 200 Mg Tablet, 400 MG PO Q8H PRN for MODERATE PAIN, (Reported) TAKES 2 (200MG) TABLETS Lactobacillus Acidophilus 1 Each Capsule, 1 CAP PO DAILY, (Reported) Levofloxacin 500 Mg Tablet, 500 MG PO DAILY, #7 Prescribed by: SAVAGE WOODS on 12/24/16 1348 Levothyroxine Sodium 25 Mcg Tablet, 25 MCG PO DAILY, (Reported) Loperamide Hcl 2 Mg Capsule, 2 MG PO UD PRN for DIARRHEA, (Reported) 2 CAPS INITIALLY, THEN 1 CAP AFTER EACH LOOSE STOOL. NOT TO EXCEED 8 CAPS/24 HRS. Lorazepam 0.5 Mg Tablet, 0.5 MG PO Q6H PRN for ANXIETY, (Reported) Mag Hydrox/Al Hydrox/Simeth 355 Ml Oral.susp, 30 ML PO Q4H PRN for HEARTBURN, ( Reported) Melatonin/Pyridoxine Hcl (B6) 1 Each Tablet, 10 MG PO HS, (Reported) TAKES 2 (5MG) TABLETS Metronidazole 500 Mg Tablet, 500 MG PO BID, #14 Prescribed by: SAVAGE WOODS on 12/24/16 1348 Mineral Oil/Petrolatum,White 3.5 Gm Oint...g., OS HS, (Reported) APPLY 1/2 INCH RIBBON BETWEEN THE LOWER LID AND THE EYE ITSELF Naloxegol Oxalate 25 Mg Tablet, 25 MG PO DAILY, (Reported) Ondansetron Hcl 4 Mg Tab, 4 MG PO Q4H PRN for NAUSEA/VOMITING, (Reported) Polyethylene Glycol 17 Gm Pack, 17 GM PO DAILY PRN for CONSTIPATION, (Reported) Polyvinyl Alcohol/Povidone 15 Ml Drops, 2 DROP OU TID, (Reported) Potassium Chloride 20 Meq Tab.er.prt, 20 MEQ PO DAILY, (Reported) Promethazine HCl 25 Mg Tablet, 25 MG PO Q6H PRN for NAUSEA/VOMITING, (Reported) Propylene Glycol/Peg 400 15 Ml Drops, 1 DROP OU QID, (Reported) Rivaroxaban 15 Mg Tablet, 15 MG PO DAILY, (Reported) Ropinirole HCl 0.5 Mg Tablet, 0.5 MG PO DAILY, (Reported) Ropinirole HCl 1 Mg Tablet, 1 MG PO HS, (Reported) Sennosides/Docusate Sodium 1 Each Tablet, 1 TAB PO BID, (Reported) Simethicone 125 Mg Capsule, 125 MG PO Q4H PRN for INDIGESTION, (Reported) Sucralfate 1 Gm/10 Ml Oral.susp, 1 GM PO ACHS, #560 Ref 0 1 gram po qAC and qHS x2wks. Prescribed by: RAÚL MINER on 04/25/16 1335 Valsartan 80 Mg Tablet, 80 MG PO DAILY, (Reported) Review of Systems Constitutional: see HPI (patient is unable to give a meaningful review of systems secondary to historical post stroke dysphasia) Past Jbcyyju-Pkprod-Mrrhxg Hx Patient Social History Alcohol Use: Denies Use Recreational Drug Use: No Smoking Status: Unknown if Ever Smoked Recent Foreign Travel: No Contact w/Someone Who Travel: No Recent Hopitalizations: Yes Immunizations Up To Date Date of Pneumonia Vaccine: Jun 05, 2007 Date of Influenza Vaccine: Mar 06, 2012 Seasonal Allergies Seasonal Allergies: No Cardiovascular Cardiac Disorders: High Cholesterol, Hypertension Neurological Neurological Disorders: Stroke, TIA Reproductive System Hx Reproductive Disorders: No Sexually Transmitted Disease: No HIV/AIDS: No Genitourinary Genitourinary Disorders: UTI-Chronic Gastrointestinal Gastrointestinal Disorders: Gastroesophageal Reflux, Chronic Constipation, Esophagitis Musculoskeletal Musculoskeletal Disorders: Osteoporosis, Fractures Endocrine Endocrine Disorders: Hypothyroidsim HEENT Hearing Impairment: Hard of Hearing Cancer Cancer: Breast Psychosocial Behavioral Health Disorders: Sleep Difficulties, Depression Family Medical History Significant Family History: Heart Disease, Hypertension, Stroke, Vascular Disease Family Medial History: Alzheimer's disease G8 SISTER G8 SISTER Aphasia G8 SISTER G8 SISTER G8 SISTER Arthritis G8 BROTHER G8 BROTHER G8 SISTER G8 SISTER G8 SISTER Deafness or hearing loss 19 MOTHER G8 BROTHER G8 BROTHER G8 SISTER G8 SISTER G8 SISTER Dementia G8 SISTER G8 SISTER G8 SISTER Hypertension G8 BROTHER G8 BROTHER Myocardial infarction 19 MOTHER Physical Exam Vital Signs VS - Last 72 Hours, by Label 05/27/17 07:15 Temp 96.2 Pulse 92 Resp 18 B/P (MAP) 145/98 (114) Pulse Ox 97 Capillary Refill : General Appearance: WD/WN, mild distress HEENT: PERRL/EOMI, pharynx normal (oral pharynx is very dry.) Neck: non-tender, normal inspection Respiratory: chest non-tender, lungs clear, normal breath sounds, no respiratory distress, no accessory muscle use Cardiovascular: normal peripheral pulses, regular rate, rhythm, no edema Peripheral Pulses: 2+ Radial Pulses (R), 2+ Radial Pulses (L) Gastrointestinal: soft, no organomegaly, abnormal bowel sounds (absent), No rebound, tenderness (she appears to indicate tenderness in bilateral lower quadrants and suprapubic region to palpation.), No mass Genital/Rectal: other (mild erythema labia majora and minora with malodor consistent with a epidermal candidiasis. Skin is dry and friable. No mass, fluctuance, nodule palpable. Labial skin over the urethra was adhered together and had a small amount of bleeding when peeled apart.) Extremities: non-tender, no pedal edema, normal capillary refill Neurologic/Psychiatric: alert Skin: normal color, warm/dry, rash (erythematous rash of the vulva) Progress/Results/Core Measures Results/Orders Lab Results Laboratory Tests Test 05/27/17 07:38 05/27/17 08:12 Range/Units White Blood Count 11.7 H 4.3-11.0 10^3/uL Red Blood Count 5.46 4.35-5.85 10^6/uL Hemoglobin 15.4 11.5-16.0 G/DL Hematocrit 47 35-52 % Mean Corpuscular Volume 85 80-99 FL Mean Corpuscular Hemoglobin 28 25-34 PG Mean Corpuscular Hemoglobin Concent 33 32-36 G/DL Red Cell Distribution Width 14.3 10.0-14.5 % Platelet Count 443 H 130-400 10^3/uL Mean Platelet Volume 9.6 7.4-10.4 FL Neutrophils (%) (Auto) 64 42-75 % Lymphocytes (%) (Auto) 24 12-44 % Monocytes (%) (Auto) 10 0-12 % Eosinophils (%) (Auto) 2 0-10 % Basophils (%) (Auto) 1 0-10 % Neutrophils # (Auto) 7.4 1.8-7.8 X 10^3 Lymphocytes # (Auto) 2.8 1.0-4.0 X 10^3 Monocytes # (Auto) 1.2 H 0.0-1.0 X 10^3 Eosinophils # (Auto) 0.2 0.0-0.3 10^3/uL Basophils # (Auto) 0.1 0.0-0.1 10^3/uL Sodium Level 138 135-145 MMOL/L Potassium Level 4.1 3.6-5.0 MMOL/L Chloride Level 102 98-107 MMOL/L Carbon Dioxide Level 20 L 21-32 MMOL/L Anion Gap 16 H 5-14 MMOL/L Blood Urea Nitrogen 17 7-18 MG/DL Creatinine 1.26 0.60-1.30 MG/DL Estimat Glomerular Filtration Rate 40 BUN/Creatinine Ratio 13 Glucose Level 113 H 70-105 MG/DL Calcium Level 10.2 H 8.5-10.1 MG/DL Total Bilirubin 0.7 0.1-1.0 MG/DL Aspartate Amino Transf (AST/SGOT) 23 5-34 U/L Alanine Aminotransferase (ALT/SGPT) 27 0-55 U/L Alkaline Phosphatase 206 H 40-136 U/L Total Protein 7.6 6.4-8.2 GM/DL Albumin 4.3 3.2-4.5 GM/DL Urine Color YELLOW Urine Clarity CLEAR Urine pH 6.5 5-9 Urine Specific [place] 1.010 L 1.016-1.022 Urine Protein 1+ H NEGATIVE Urine Glucose (UA) NEGATIVE NEGATIVE Urine Ketones NEGATIVE NEGATIVE Urine Nitrite NEGATIVE NEGATIVE Urine Bilirubin NEGATIVE NEGATIVE Urine Urobilinogen 1 NORMAL MG/DL Urine Leukocyte Esterase 3+ H NEGATIVE Urine RBC (Auto) 4+ H NEGATIVE Urine RBC 10-25 H /HPF Urine WBC 10-25 H /HPF Urine Squamous Epithelial Cells 0-2 /HPF Urine Crystals NONE /LPF Urine Bacteria NEGATIVE /HPF Urine Casts NONE /LPF Urine Mucus NEGATIVE /LPF Urine Culture Indicated YES My Orders Orders - RALPH MOON Cbc With Automated Diff (05/27/17 07:22) Comprehensive Metabolic Panel (05/27/17 07:22) Ua Culture If Indicated (05/27/17 07:22) Saline Lock/Iv-Start (05/27/17 07:22) Lactated Ringers (Lr 1000 Ml Iv Solution (05/27/17 07:22) Straight Cath (Urinary) (05/27/17 07:22) Lactated Ringers (Lr 1000 Ml Iv Solution (05/27/17 07:54) Ct Abdomen/Pelvis Wo (05/27/17 07:22) Urine Culture (05/27/17 08:12) Medications Given in ED Current Medications Medications Dose Ordered Sig/Horace Route Start Time Stop Time Status Last Admin Dose Admin Lactated Ringer's 1,000 ml @ 0 mls/hr Q0M ONCE IV 05/27/17 07:22 05/27/17 07:28 DC 05/27/17 07:44 1,000 MLS/HR Lactated Ringer's 1,000 ml @ 0 mls/hr Q0M ONCE IV 05/27/17 07:54 05/27/17 07:55 DC 05/27/17 08:15 1,000 MLS/HR Vital Signs/I&O Vital Sign - Last 12Hours 05/27/17 07:15 Temp 96.2 Pulse 92 Resp 18 B/P (MAP) 145/98 (114) Pulse Ox 97 Progress Note #1: Time: 07:50 Progress Note No mass seen of the vulva however she does have vulvar candidiasis. Her recent use of opiates, dry appearance may contribute to opiate-induced ileus versus UTI versus intra-abdominal pathology. We'll obtain blood, urine by straight catheter and a CT of the abdomen with contrast. We'll give her some IV fluids. Estimating her weight at 160 pounds. Straight catheter was unable to obtain any urine got a small amount of white matter coming down the catheter tube nothing to collect. We'll give her some fluids to rehydrate her before reattempting. Progress Note #2: Time: 09:[address] of the abdomen. Urinary tract infection most likely causing her symptoms. The patient is dehydrated and also has vulvar candidiasis. Her leukocytosis is not above 12,000 and she has no fever and her heart rate is only barely above 90 which has responded favorably to fluid resuscitation. Red blood cells seen on the urinalysis are probably due to the prior catheterization attempt. Diagnostic Imaging Diagonstic Imaging: CT (with contrast) Plain Films/CT/US/NM/MRI: abdomen, pelvis [facility] [place], [place] NAME: SUPRIYA MARTINEZ [facility] REC#: [id number] PT STATUS: REG ER : 1930 PHYSICIAN: RALPH MOON MD ADMIT DATE: 05/27/17/ER Draft Date of Exam:05/27/17 CT ABDOMEN/PELVIS WO PROCEDURE: CT abdomen and pelvis without contrast. TECHNIQUE: Multiple contiguous axial images were obtained through the abdomen and pelvis without the use of intravenous contrast. INDICATION: Abdominal pain and back pain. Exam compared 09/26/2009, partially visualized lung bases are unremarkable. The visualized liver, unopacified showed no acute or focal abnormality. Spleen is unremarkable. There is no adrenal mass. Pancreas is unremarkable. Aorta is calcified but nonaneurysmal. There is no hydronephrosis. No opaque kidney stone. There is extensive noninflamed diverticular disease of the sigmoid colon. There is no ascites abscess hematoma or fluid collection. No focal or inflammatory process. The osseous structures nonacute IMPRESSION: Noncontrast enhanced abdominopelvic CT revealed no obstructive phenomena, inflammatory process, fluid collection or ascites. No acute finding. Dictated on workstation # [id number] Dict: 05/27/17832 Trans: 05/27/1744 [facility] [id number] Interpreted by: JERMAIN HEALY Electronically signed by: Reviewed: Reviewed by Me Departure Impression Impression: Primary Impression: Vulvar candidiasis Additional Impressions: Urinary tract infection Qualified Codes: N30.01 - Acute cystitis with hematuria Dehydration Disposition: HOME, SELF-CARE Condition: Stable Departure-Patient Inst. Decision time for Depature: 09:34 Referrals: ALICIA PENALOZA MD (PCP/Family) Primary Care Physician Patient Instructions: Urinary Tract Infection, Adult (DC) Add. Discharge Instructions: Please encourage a lot of fluids for the patient for the next couple weeks. Apply the nystatin twice a day and bathe with soap and water and allow the skin to dry well before redressing. Take the antibiotics twice a day by mouth with food or drink. Scripts Nystatin (Nystatin) 1 Each Powder.ea. 1 EACH TOP BID for 14 Days, #1 UNIT 0 Refills Prov: RALPH MOON 05/27/17 Cephalexin (Keflex) 500 Mg Capsule 500 MG PO BID for 7 Days, #14 CAP 0 Refills Prov: RALPH MOON 05/27/17 Copy Copies To 1: ALICIA PENALOZA MD, TITUS J May 27, 2017 07:31
[2017-05-27 07:43] LABS: BASOPHILS # (AUTO) 0.1 10^3/uL (0.0-0.1); BASOPHILS % (AUTO) 1 % (0-10); EOSINOPHILS # (AUTO) 0.2 10^3/uL (0.0-0.3); EOSINOPHILS % (AUTO) 2 % (0-10); LYMPHOCYTES # (AUTO) 2.8 X 10^3 (1.0-4.0); LYMPHOCYTES % (AUTO) 24 % (12-44); MEAN CORPUSCULAR HEMOGLOBIN 28 PG (25-34); MEAN CORPUSCULAR HGB CONC 33 G/DL (32-36); MEAN CORPUSCULAR VOLUME 85 FL (80-99); MEAN PLATELET VOLUME 9.6 FL (7.4-10.4); MONOCYTES # (AUTO) 1.2 X 10^3 (0.0-1.0); MONOCYTES % (AUTO) 10 % (0-12); NEUTROPHILS # (AUTO) 7.4 X 10^3 (1.8-7.8); NEUTROPHILS % (AUTO) 64 % (42-75); PLATELET COUNT 443 10^3/uL (130-400); RED BLOOD COUNT 5.46 10^6/uL (4.35-5.85); RED CELL DISTRIBUTION WIDTH 14.3 % (10.0-14.5); WHITE BLOOD COUNT 11.7 10^3/uL (4.3-11.0)
[2017-05-27 08:06] LABS: ALBUMIN 4.3 GM/DL (3.2-4.5); BILIRUBIN,TOTAL 0.7 MG/DL (0.1-1.0); CALCIUM 10.2 MG/DL (8.5-10.1); CREATININE SERUM 1.26 MG/DL (0.60-1.30); POTASSIUM 4.1 MMOL/L (3.6-5.0); TOTAL PROTEIN 7.6 GM/DL (6.4-8.2)
[2017-05-27 08:18] LABS: BILIRUBIN,URINE NEGATIVE (NEGATIVE); KETONES,URINE NEGATIVE (NEGATIVE); LEUKOCYTE ESTERASE ,URINE 3+ (NEGATIVE); NITRITE,URINE NEGATIVE (NEGATIVE); PH,URINE 6.5 (5-9); PROTEIN,URINE 1+ (NEGATIVE); UROBILINOGEN,URINE 1 MG/DL (NORMAL)
[2017-05-27 08:26] LABS: SQUAMOUS EPITHELIAL CELL,UR 0-2 /HPF
--- NOTE | 2017-05-27 08:44 | Diagnostic Imaging Report ---
PROCEDURE: CT abdomen and pelvis without contrast. TECHNIQUE: Multiple contiguous axial images were obtained through the abdomen and pelvis without the use of intravenous contrast. INDICATION: Abdominal pain and back pain. Exam compared 09/26/2009, partially visualized lung bases are unremarkable. The visualized liver, unopacified showed no acute or focal abnormality. Spleen is unremarkable. There is no adrenal mass. Pancreas is unremarkable. Aorta is calcified but nonaneurysmal. There is no hydronephrosis. No opaque kidney stone. There is extensive noninflamed diverticular disease of the sigmoid colon. There is no ascites abscess hematoma or fluid collection. No focal or inflammatory process. The osseous structures nonacute IMPRESSION: Noncontrast enhanced abdominopelvic CT revealed no obstructive phenomena, inflammatory process, fluid collection or ascites. No acute finding. Dictated by: Dictated on workstation # [id number]
[2017-05-27] MEDS ORDERED: CEPH-507 PO (09:37)
[2017-05-27] MEDS ORDERED: NYST1POW22 TOP (09:37)
[2017-05-27 09:50] VITALS: BP 115/71
== END 2017-05-27 09:50 | disposition home or self-care (01) ==
LOC: EDUNIT# 07:06 → ER 07:08
DX: B37.3 Candidiasis of vulva and vagina (principal); N39.0 Urinary tract infection, site not specified; E78.00 Pure hypercholesterolemia, unspecified; I10 Essential (primary) hypertension; K21.9 Gastro-esophageal reflux disease without esophagitis; M81.0 Age-related osteoporosis without current pathological fracture; E03.9 Hypothyroidism, unspecified; F32.9 Major depressive disorder, single episode, unspecified; Z82.49 Family history of ischemic heart disease and other diseases of the circulatory system; Z85.3 Personal history of malignant neoplasm of breast; Z87.440 Personal history of urinary (tract) infections; Z87.19 Personal history of other diseases of the digestive system; Z86.73 Personal history of transient ischemic attack (TIA), and cerebral infarction without residual deficits; Z79.01 Long term (current) use of anticoagulants
CPT/HCPCS: 36415; 74176; 80053; 81000; 85025; 87077; 87088; 87186; 99282

== ENCOUNTER → 2017-05-31 | Outpatient (CLI) | payer MEDICARE, MEDICAID ==
[~2017-05-31] MED LIST changes: +CEPH-507 PO; +NYST1POW22 TOP
--- NOTE | 2017-05-31 10:33 | Diagnostic Imaging Report ---
PROCEDURE: MRI lumbar spine. TECHNIQUE: Multiplanar, multisequence MRI of the lumbar spine was performed without contrast. INDICATION: Low back pain. FINDINGS: There are motion artifacts on this exam which somewhat limits this exam. There is severely compressed L4 vertebral body with significant low signal compatible with sclerotic component from impaction and T2 signal abnormality suggestive of edema. There is probably an acute component on top of chronic fracture. The upper and lower margins of the vertebral body demonstrate retropulsion into the spinal canal posteriorly. The alignment of the posterior spinal line otherwise is satisfactory. There is straightening of the lumbar lordosis. The other vertebral bodies demonstrate normal heights. There is mild reactive marrow signal abnormality in L5 vertebral body and in L3 with mild edema around the lower lumbar spine facet joints. There is disc desiccation at all levels. There is unremarkable appearance of the cauda equina and conus medullaris. Levels from T12/L1-L2/3 demonstrate no significant disc herniation, no spinal canal stenosis or foraminal narrowing. L3/4: There is disc herniation and mild retropulsion from the compression fracture with posterior ligamentous hypertrophy. There is also facet arthropathy. There is severe spinal canal stenosis which appears to reduce the AP dimension of the canal to 4.6 mm. The lateral recesses appear to be stenotic as well particularly on the right side. The foramina demonstrate bilateral mild to moderate stenosis. L4/5: There is disc herniation and retropulsion of L4 with associated posterior ligamentous hypertrophy and facet joint hypertrophy resulting in severe spinal canal stenosis reducing the AP dimension of the canal centrally to 4.9 mm and suggestion of bilateral severe lateral recess stenosis. The foramina demonstrate bilateral severe stenosis. L5/S1: There is a diffuse disc bulge and mild to moderate facet hypertrophy. No high-grade central canal or lateral recess stenosis is suggested. There is foraminal stenosis of moderate to severe degree bilaterally which appears to encroach upon the exiting nerves. IMPRESSION: 1. Severely compressed L4 vertebral body with appearance in favor of chronicity, with superimposed mild marrow edema from possible acute injury component. 2. Although motion artifact somewhat limits evaluation, there is suggestion of severe spinal canal stenosis at L4/5 and L3/4 levels. There is also high-grade foraminal stenosis seen bilaterally at L4/5 and L5/S1 levels. Dictated by: Dictated on workstation # [id number]
== END ==
LOC: RAD 07:16
PROVIDERS: ATTEND Orthopaedic Surgery
DX: S32.010A Wedge compression fracture of first lumbar vertebra, initial encounter for closed fracture (principal); M99.73 Connective tissue and disc stenosis of intervertebral foramina of lumbar region
CPT/HCPCS: 72148